=== PATIENT | male | born 1995 | race Hispanic/Latino ===

== ENCOUNTER 2019-06-30 00:47 | Emergency (ER) | payer SELFPAY ==
[2019-06-30] MEDS ORDERED: TETANUS & DIPHTHERIA TOX,ADULT 0.5 ML VIAL ONE (02:11)
[2019-06-30] MEDS ORDERED: LIDOCAINE 1% MPF 5 ML VIAL ONE (04:28)
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
[2019-06-30 05:04] VITALS: TEMP 99.1
[2019-06-30 05:05] VITALS: O2SAT 99
[2019-06-30 05:07] VITALS: BP 116/71
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
== END 2019-06-30 04:47 | disposition home or self-care (01) ==
LOC: ER 00:47
DX: S81.012A Laceration without foreign body, left knee, initial encounter (principal); S50.01XA Contusion of right elbow, initial encounter; Y04.2XXA Assault by strike against or bumped into by another person, initial encounter; Y93.9 Activity, unspecified; Y92.9 Unspecified place or not applicable; Z23 Encounter for immunization
CPT/HCPCS: 70450; 90471; 90714; 99283